=== PATIENT | male | born 1990 | race Caucasian/White ===

== ENCOUNTER 2017-08-20 15:47 | Emergency (ER) | payer OTHER ==
[2017-08-20] MEDS: TETRACAINE 0.5% OPHTH SOLUTION 4ML BOTTLE. OD (16:15)
[2017-08-20] MEDS: FLUORESCEIN OPHTH TEST STRIP. OD (16:15)
== END 2017-08-20 16:43 | disposition home or self-care (01) ==
LOC: ER 15:47
DX: H57.8 Other specified disorders of eye and adnexa (principal); H57.11 Ocular pain, right eye; Z88.6 Allergy status to analgesic agent; Z88.8 Allergy status to other drugs, medicaments and biological substances
CPT/HCPCS: 99283

== ENCOUNTER 2018-01-21 13:39 | Emergency (ER) | payer OTHER ==
[2018-01-21] MEDS ORDERED: HYDROcodone/APAP 5/325MG 1 TAB TABLET PO (15:00)
== END 2018-01-21 14:40 | disposition home or self-care (01) ==
LOC: ER 13:39
DX: S16.1XXA Strain of muscle, fascia and tendon at neck level, initial encounter (principal); Z88.8 Allergy status to other drugs, medicaments and biological substances; Z88.6 Allergy status to analgesic agent; X58.XXXA Exposure to other specified factors, initial encounter; Y93.89 Activity, other specified; Y92.89 Other specified places as the place of occurrence of the external cause; Y99.8 Other external cause status
CPT/HCPCS: 99283

== ENCOUNTER 2018-06-14 04:44 | Emergency (ER) | payer SELFPAY ==
[~2018-06-14] VITALS: Ht 177.8 cm; Wt 127.0 kg
[~2018-06-14 04:44] MED LIST: CYCL10TA2 PO; HYDR-3164 PO
[2018-06-14 04:45] VITALS: BP 159/87
--- NOTE | 2018-06-14 05:03 | PHYS DOC ---
Past Medical History Past Medical History: No Pertinent History Past Surgical History: No Surgical History Smoking: Cigarettes (The patient is a nonsmoker.) Alcohol Use: None Drug Use: None Adult General Chief Complaint Chief Complaint: SORE THROAT HPI HPI Patient is a 27-year-old male who presents to the emergency department for evaluation. He states for the past 2 weeks, he has had nasal congestion, and a cough, as well as a sore throat. He has not had any mucus production and denies any shortness of breath or chest pain. He has not had any fevers or chills. He has not had any otalgia. There are no alleviating or exacerbating factors to his symptoms. Review of Systems Review of Systems Constitutional: Denies fever or chills [] Eyes: Denies change in visual acuity, redness, or eye pain [] HENT: Reports nasal congestion and sore throat [] Respiratory: Denies productive cough or shortness of breath [] Cardiovascular:The patient denies any shortness of breath, chest pain, palpitations, or orthopnea [] GI: Denies abdominal pain, nausea, vomiting, bloody stools or diarrhea [] : Denies dysuria or hematuria [] Musculoskeletal: Denies back pain or joint pain [] Integument: Denies rash or skin lesions [] Neurologic: Denies headache, focal weakness or sensory changes [] Endocrine: Denies polyuria or polydipsia [] All other systems were reviewed and found to be within normal limits, except as documented in this note. Allergies Allergies Allergies Coded Allergies Type Severity Reaction Last Updated Verified ibuprofen Allergy Unknown Swelling 08/20/17 Yes pseudoephedrine Allergy Unknown Swelling 08/20/17 Yes Physical Exam Physical Exam PHYSICAL EXAM: CONSTITUTIONAL: Well developed, well nourished HEAD: normocephalic, atraumatic EENT: PERRL, EOMI. Conjunctivae normal color, sclerae non-icteric; moist mucous membranes. There is enlargement of the tonsils bilaterally, without any significant erythema. There is no exudate. The tonsillar pillars appear normal, without any edema. Nasal congestion is present. NECK: Supple, non-tender; no meningismus. LUNGS: Lungs CTA, breathing even and unlabored. Normal air movement. HEART: Regular rate and rhythm, no murmur CHEST: No deformity; non-tender ABDOMEN: The abdomen is soft, and non-tender, no masses or bruits. EXTREM: Normal ROM; no deformity, no calf tenderness. Normal pulses palpable in all extremities. There is no pedal edema. SKIN: No rash; no diaphoresis NEURO: Alert; normal speech and cognition; CN's grossly intact; strength grossly intact without focal deficit. BACK: No CVA TTP. Current Patient Data Vital Signs Vital Signs Date Time Temp Pulse Resp B/P (MAP) Pulse Ox O2 Delivery O2 Flow Rate FiO2 06/14/18 04:45 98.4 108 26 159/87 (111) 97 Room Air 98.4 EKG EKG [] Radiology/Procedures Radiology/Procedures [] Course & Med Decision Making Course & Med Decision Making Rapid strep is negative. The patient does have somewhat of an excessive amount of soft tissue in his posterior pharynx which I suspect is chronic, and possibly the patient might have underlying sleep apnea, although he denies difficulty sleeping her problems with snoring. I do believe he warrants pulmonary evaluation. I will refer him for such. I discussed expectant management for his URI symptoms, he'll be given steroids as a precaution, and return precautions were discussed. There is no evidence of peritonsillar abscess. Dragon Disclaimer Dragon Disclaimer This electronic medical record was generated, in whole or in part, using a voice recognition dictation system. Departure Departure Impression: Primary Impression: Pharyngitis Additional Impression: URI (upper respiratory infection) Disposition: 01 HOME, SELF-CARE Condition: STABLE Referrals: ALEXANDRIA HOOPER MD Patient Instructions: Upper Respiratory Infection, Adult, Viral Pharyngitis Scripts Prednisone (PREDNISONE) 20 Mg Tablet 40 MG PO DAILY for 5 Days, #10 TAB Prov: HIGINIO COVINGTON MD 06/14/18 Problem Qualifiers HIGINIO COVINGTON MD Jun 14, 2018 05:03
[2018-06-14] MEDS ORDERED: PRED20TA PO (05:29)
== END 2018-06-14 05:30 | disposition home or self-care (01) ==
LOC: ER 04:44
DX: J02.9 Acute pharyngitis, unspecified (principal); Z88.6 Allergy status to analgesic agent; Z88.8 Allergy status to other drugs, medicaments and biological substances
CPT/HCPCS: 87070; 87880; 99283

== ENCOUNTER 2020-10-28 20:58 | Emergency (ER) | payer SELFPAY ==
[~2020-10-28] VITALS: Ht 177.8 cm; Wt 113.0 kg
[~2020-10-28 20:58] MED LIST changes: +PRED20TA PO
[2020-10-28 21:11] VITALS: BP 177/95
--- NOTE | 2020-10-28 21:19 | ED.ADGEN ---
Past Medical History Past Medical History: Diabetes-Type II Past Surgical History: No Surgical History Smoking Status: Never Smoker Alcohol Use: None Drug Use: None General Adult EDM: Chief Complaint: HAND PROBLEM HPI: HPI: Patient is a 30 year old male coming in for injury to the palm of his left hand. Is requesting particles when he smashed into his hand and created a laceration. Last tetanus 5 years ago. No other injuries. Otherwise been well. Review of Systems: Review of Systems: All other systems within normal limits except for as noted in the HPI Current Medications: Current Medications Medications (Trade) Dose Ordered Sig/Vinicio Start Time Stop Time Status Last Admin Dose Admin Lidocaine/ Epinephrine (LIDOCAINE 2%-EPI 1:100,000 multi-dose) 20 ml 1X ONCE 10/28/20 22:00 10/28/20 22:01 DC 10/28/20 22:20 20 ML Allergies: Allergies: Allergies Coded Allergies Type Severity Reaction Last Updated Verified ibuprofen Allergy Unknown Swelling 08/20/17 Yes pseudoephedrine Allergy Unknown Swelling 08/20/17 Yes Physical Exam: PE: Constitutional: Well developed, well nourished, no acute distress, non-toxic appearance. [] HENT: Normocephalic, atraumatic, bilateral external ears normal, oropharynx moist, no oral exudates, nose normal. [] Eyes: PERRLA, EOMI, conjunctiva normal, no discharge. [] Neck: Normal range of motion, no tenderness, supple, no stridor. [] Cardiovascular:Heart rate regular rhythm, no murmur [] Lungs & Thorax: Bilateral breath sounds clear to auscultation [] Abdomen: Bowel sounds normal, soft, no tenderness, no masses, no pulsatile masses. [] Skin: Warm, dry, no erythema, no rash. 1.5 cm C-shaped laceration to palm of left hand at the base of fourth finger. [] Back: No tenderness, no CVA tenderness. [] Extremities: No tenderness, no cyanosis, no clubbing, ROM intact, no edema. [] Neurologic: Alert and oriented X 3, normal motor function, normal sensory function, no focal deficits noted. [] Psychologic: Affect normal, judgement normal, mood normal. [] Current Patient Data: Vital Signs: Vital Signs Date Time Temp Pulse Resp B/P (MAP) Pulse Ox O2 Delivery O2 Flow Rate FiO2 10/28/20 21:11 107 16 177/95 (122) 99 Room Air EKG: EKG: [] Heart Score: C/O Chest Pain: No Risk Factors: Risk Factors: DM, Current or recent (<one month) smoker, HTN, HLP, family history of CAD, obesity. Risk Scores: Score 0 - 3: 2.5% MACE over next 6 weeks - Discharge Home Score 4 - 6: 20.3% MACE over next 6 weeks - Admit for Clinical Observation Score 7 - 10: 72.7% MACE over next 6 weeks - Early Invasive Strategies Radiology/Procedures: Radiology/Procedures: XR HAND_LEFT 3 VIEWS DATE: 10/28/2020 9:30 PM INDICATION: injury COMPARISON: None. FINDINGS: Bones: There is no evidence of acute fracture or dislocation. Joints: The joint spaces are normal. Miscellaneous: None. IMPRESSION: No evidence of acute fracture. [] Impression: Patient was prepped and draped in normal fashion, wound irrigated and cleansed with normal saline. The 2 cm wound was anesthetized with lidocaine 2% with epi. Depth of wound was examined and no foreign bodies found. Wound was approximated with 40 suture in a simple interrupted pattern. 6 Sutures placed without complication. Wound was not dressed a nonadherent bandage. Procedure performed by nurse practitioner Course & Med Decision Making: Course & Med Decision Making Pertinent Labs and Imaging studies reviewed. (See chart for details) [] Dragon Disclaimer: Dragon Disclaimer: This electronic medical record was generated, in whole or in part, using a voice recognition dictation system. Departure Departure Impression: Primary Impression: Hand laceration Disposition: 01 HOME / SELF CARE / HOMELESS Condition: STABLE Referrals: NO PCP (PCP) Patient Instructions: Laceration Care, Adult Additional Instructions: Follow-up with a primary care provider return to ER for suture removal in 7 to 10 days. Monitor for signs of infection MILDRED SHAIKH MD October 28, 2020 21:18
--- NOTE | 2020-10-28 21:59 | RAD ---
XR HAND_LEFT 3 VIEWS DATE: 10/28/2020 9:30 PM INDICATION: injury COMPARISON: None. FINDINGS: Bones: There is no evidence of acute fracture or dislocation. Joints: The joint spaces are normal. Miscellaneous: None. IMPRESSION: No evidence of acute fracture. Electronically signed by: Tim Damon MD (10/28/2020 9:56 PM) [facility]
[2020-10-28] MEDS ORDERED: LIDOCAINE 2%/EPI 1:100,000 20 ML VIAL. INJ ONE (22:00)
== END 2020-10-28 23:35 | disposition home or self-care (01) ==
LOC: ER 20:58
DX: S61.412A Laceration without foreign body of left hand, initial encounter (principal); E11.9 Type 2 diabetes mellitus without complications; X58.XXXA Exposure to other specified factors, initial encounter; Y93.89 Activity, other specified; Y92.89 Other specified places as the place of occurrence of the external cause; Y99.8 Other external cause status
CPT/HCPCS: 12001; 73130; 99283; J3490